=== PATIENT | female | born 1995 | race American Indian/Alaskan Native ===

== ENCOUNTER 2018-03-27 14:14 | Emergency (ER) | payer SELFPAY ==
[2018-03-27 14:31] VITALS: BP 159/86
[2018-03-27 15:00] LABS: Basophils # (Auto) 0.1 K/mm3 (0.0-0.1); Basophils % (Auto) 0.7 % (0.0-1.8); Eosinophils # (Auto) 0.1 K/mm3 (0.0-0.4); Eosinophils % (Auto) 0.7 % (0.0-4.3); Hematocrit 41.3 % (30.3-42.9); Hemoglobin 13.7 gm/dl (10.1-14.3); Lymphocytes # (Auto) 1.3 K/mm3 (1.2-5.4); Lymphocytes % (Auto) 15.3 % (13.4-35.0); Mean Corpuscular HGB Conc 33 % (30-34); Mean Corpuscular Volume 87 fl (79-97); Monocytes # (Auto) 0.5 K/mm3 (0.0-0.8); Monocytes % (Auto) 5.7 % (0.0-7.3); Platelet Count 342 K/mm3 (140-440); Red Blood Count 4.74 M/mm3 (3.65-5.03); Red Cell Distribution Width 15.7 % (13.2-15.2)
--- NOTE | 2018-03-27 15:01 | Emergency Department Report ---
ED Female HPI - General Chief complaint: Vaginal Bleeding Stated complaint: 11WKS /HEAVY BLEEDING Time Seen by Provider: 03/27/18 14:50 Source: patient Mode of arrival: Ambulatory Limitations: No Limitations - History of Present Illness Initial comments: Patient is a 22-year-old -[place] female who comes to the ER with a 2 week history of vaginal bleeding and cramps. She told the triage nurses she was 11 weeks . She told them that she could not remember her last menstrual cycle. I told her that she had to be able to tell us to date so that we could take care of her properly. She then looked on her phone and said it was 11 2. She has had no care. 2 para 0 AB 0 patient is on no home medications. MD Complaint: vaginal bleeding -: Sudden Quality: cramping Are you Now?: Yes Associated Symptoms: vaginal bleeding - Related Data Sexually active: Yes : 2 Previous Rx's Medication Instructions Recorded Last Taken Type Ondansetron [Zofran Odt] 4 mg PO Q8HR PRN #10 tab.rapdis 03/27/18 Unknown Rx traMADol [Ultram] 50 mg PO Q6HR PRN #12 tablet 03/27/18 Unknown Rx Allergies Allergy/AdvReac Type Severity Reaction Status Date / Time No Known Allergies Allergy Unverified 03/27/18 14:28 ED Review of Systems ROS: Stated complaint: 11WKS /HEAVY BLEEDING Other details as noted in HPI Comment: All other systems reviewed and negative Constitutional: denies: chills, fever Eyes: denies: eye pain ENT: denies: throat pain Respiratory: denies: cough Cardiovascular: denies: dyspnea on exertion Endocrine: denies: intolerance to cold Gastrointestinal: abdominal pain, nausea, vomiting. denies: diarrhea, constipation, hematemesis, melena Genitourinary: as per HPI, abnormal menses. denies: urgency, dysuria, frequency, hematuria, discharge, dyspareunia Musculoskeletal: denies: back pain Skin: denies: rash Neurological: denies: headache Psychiatric: denies: anxiety Hematological/Lymphatic: denies: easy bleeding ED Past Medical Hx - Past Medical History Previous Medical History?: No - Surgical History Past Surgical History?: No - Family History Family history: no significant - Social History Smoking Status: Never Smoker Substance Use Type: None - Medications Home Medications: Home Medications Medication Instructions Recorded Confirmed Last Taken Type Ondansetron [Zofran Odt] 4 mg PO Q8HR PRN #10 tab.rapdis 03/27/18 Unknown Rx traMADol [Ultram] 50 mg PO Q6HR PRN #12 tablet 03/27/18 Unknown Rx ED Physical Exam - General Limitations: No Limitations General appearance: alert - Head Head exam: Present: atraumatic - Eye Eye exam: Present: normal appearance, PERRL - ENT ENT exam: Present: normal exam - Neck Neck exam: Present: normal inspection - Respiratory Respiratory exam: Present: normal lung sounds bilaterally - Cardiovascular Cardiovascular Exam: Present: regular rate, tachycardia - GI/Abdominal GI/Abdominal exam: Present: soft, normal bowel sounds - Rectal Rectal exam: Present: deferred - Extremities Exam Extremities exam: Present: normal inspection, full ROM - Back Exam Back exam: Present: normal inspection, full ROM - Neurological Exam Neurological exam: Present: alert, oriented X3 - Psychiatric Psychiatric exam: Present: normal affect, normal mood - Skin Skin exam: Present: warm, dry ED Course Vital Signs 03/27/18 14:28 Temperature 98.5 F Pulse Rate 110 H Respiratory 20 Rate Blood Pressure 159/86 O2 Sat by Pulse 98 Oximetry - Reevaluation(s) Reevaluation #1: 03/27/18 18:01 PT CONTINUES TO REFUSE TO GIVE URINE SHE ALSO REFUSED TRANSVAGINAL ULTRASOUND ED Medical Decision Making - Lab Data Result diagrams: 03/27/18 14:40 03/27/18 14:40 - Radiology Data Radiology results: report reviewed, image reviewed - Medical Decision Making RH POS H/H 1341 HCG 70266 LABS NOTED REFUSED TO GIVE URINE REFUSED TRANSVAG ULTRASOUND MEDICATED FOR PAIN DC HOME WITH FOLLOW UP WITH OBGYN FOR REPEAT EVALUATION [address] CHOW. HE CONCURS WITH AB- OK TO DC WITH FOLLOW UP. PT HAS BEEN UPDATED DC HOME WITH DC POC. Labs 03/27/18 03/27/18 03/27/18 14:40 14:40 14:40 WBC 8.6 RBC 4.74 Hgb 13.7 Hct 41.3 MCV 87 MCH 29 MCHC 33 RDW 15.7 H Plt Count 342 Lymph % (Auto) 15.3 [place] % (Auto) 5.7 Eos % (Auto) 0.7 Baso % (Auto) 0.7 Lymph # 1.3 [place] # 0.5 Eos # 0.1 Baso # 0.1 Seg Neutrophils % 77.6 H Seg Neutrophils # 6.6 Sodium 135 L Potassium 4.0 Chloride 100.1 Carbon Dioxide 21 L Anion Gap 18 BUN 7 Creatinine 0.8 Estimated GFR > 60 BUN/Creatinine Ratio 9 Glucose 124 H Calcium 9.7 HCG, Quant 69935 H Blood Type Antibody Screen 03/27/18 14:44 WBC RBC Hgb Hct MCV MCH MCHC RDW Plt Count Lymph % (Auto) [place] % (Auto) Eos % (Auto) Baso % (Auto) Lymph # [place] # Eos # Baso # Seg Neutrophils % Seg Neutrophils # Sodium Potassium Chloride Carbon Dioxide Anion Gap BUN Creatinine Estimated GFR BUN/Creatinine Ratio Glucose Calcium HCG, Quant Blood Type O POSITIVE Antibody Screen Negative - Differential Diagnosis RO AB Critical care attestation.: If time is entered above; I have spent that time in minutes in the direct care of this critically ill patient, excluding procedure time. ED Disposition Clinical Impression: Miscarriage Disposition: - TO HOME OR SELFCARE Is pt being admited?: No Does the pt Need Aspirin: No Condition: Stable Instructions: Spontaneous Miscarriage (ED) Additional Instructions: PELVIC REST SAFE SEX HYDRATE WITH WATER MOTRIN OR TYLENOL FOR MILD PAIN ULTRAM FOR SEVERE PAIN REST WARM COMPRESSES TO ABDOMEN YOU NEED TO SEE A SPECIALIST PRACHI. DEEP GIVEN YOU OBGYN REFERRAL BELOW CALL IN AM AND GET SEEN PRACHI TELL THEM YOU WERE HERE AND THEY CAN EVALUATE YOU IN CONTEXT OF YOUR WORK UP TODAY. LET THEM KNOW YOU REFUSED TO GIVE URINE AND REFUSED TRANSVAGINAL ULTRASOUND BLOOD TYPE IS RH POS 26190 IS HCG LEVEL Prescriptions: Ondansetron [Zofran Odt] 4 mg PO Q8HR PRN #10 tab.rapdis PRN Reason: Vomiting traMADol [Ultram] 50 mg PO Q6HR PRN #12 tablet PRN Reason: Pain Referrals: KENNETH CHOW MD [Staff Physician] - 3-5 Days Time of Disposition: 17:20
[2018-03-27 15:20] LABS: BUN/Creatinine Ratio 9; Blood Urea Nitrogen 7 mg/dL (7-17); Calcium 9.7 mg/dL (8.4-10.2); Hemolysis Index 5
[2018-03-27] MEDS ORDERED: TYLENOL PO ONE (15:48)
[2018-03-27] MEDS ORDERED: NORCO 7.5/325 PO ONE (17:16)
[2018-03-27] MEDS ORDERED: ZOFRAN ODT PO ONE (17:16)
--- NOTE | 2018-03-27 18:23 | Ultrasound Report ---
FINAL REPORT PROCEDURE: US OB <= 14 WEEKS FETUS TECHNIQUE: Real-time transabdominal sonography of the uterus, placenta, amniotic fluid, adnexa, and fetus was performed with image documentation. Measurements were obtained to determine age/size. M-mode Doppler was used to document heartbeat. CPT 96860 HISTORY: vag bleed in preg COMPARISON: No prior studies are available for comparison. FINDINGS: Uterus measures 10.3 x 5.5 x 7.1 centimeters. Endometrium is thickened and heterogeneous, measuring u p to 2.5 centimeters in thickness. No endometrial fluid or intrauterine gestational sac is seen. Cervix: Normal. Right Ovary: Normal. Left Ovary: Normal. No free fluid or adnexal mass is seen. IMPRESSION: Thickened, heterogeneous endometrium. No intrauterine gestational sac is seen. Cannot fully exclude e ctopic . Recommend clinical correlation.
== END 2018-03-27 18:33 | disposition home or self-care (01) ==
LOC: ED 14:14
DX: O03.9 Complete or unspecified spontaneous abortion without complication (principal); Z3A.11 11 weeks gestation of pregnancy
CPT/HCPCS: 36415; 76801; 80048; 84702; 85025; 86850; 86900; 86901; 99284; Q0162